=== PATIENT | male | born 1970 | race Caucasian/White ===

== ENCOUNTER 2017-01-04 05:04 | Emergency (ER) | payer OTHER ==
[2017-01-04 05:17] VITALS: BP 130/87
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
[2017-01-04] MEDS ORDERED: SMZ/TMP 800/160MG TABLET. PO ONE ×2 (06:00)
[2017-01-04] MEDS ORDERED: ONDANSETRON ODT 4 MG TAB.RAPDIS PO ONE (06:00)
[2017-01-04] MEDS ORDERED: ONDANSETRON ODT 4 MG TAB.RAPDIS ONE (06:00)
--- NOTE | 2017-01-04 08:26 | RAD ---
Indication injury, pain. AP lateral and oblique views of the left knee were obtained as well as a sunrise view. No bony abnormality is seen
== END 2017-01-04 06:08 | disposition home or self-care (01) ==
LOC: ER 05:22
DX: L03.116 Cellulitis of left lower limb (principal); F10.120 Alcohol abuse with intoxication, uncomplicated; F17.210 Nicotine dependence, cigarettes, uncomplicated; J44.9 Chronic obstructive pulmonary disease, unspecified; Z86.73 Personal history of transient ischemic attack (TIA), and cerebral infarction without residual deficits; Z88.0 Allergy status to penicillin; Z91.018 Allergy to other foods; W01.0XXA Fall on same level from slipping, tripping and stumbling without subsequent striking against object, initial encounter; Y93.39 Activity, other involving climbing, rappelling and jumping off; Y99.8 Other external cause status; Y92.34 Swimming pool (public) as the place of occurrence of the external cause
CPT/HCPCS: 73564; 99284; Q0162